=== PATIENT | male | born 1960 | race African-American/Black ===

== ENCOUNTER 2018-09-21 11:08 | Inpatient (IN) | payer MEDICAID, MEDICARE ==
[~2018-09-21] VITALS: Ht 180.3 cm; Wt 77.1 kg
[~2018-09-21 11:08] MED LIST: AMA1 PO; ATOR10TA PO; CLOP75TA16 PO; CYCL5TAB10 PO; FOLI-43 PO; PIOG15TA6 PO; ZOLP12.52 PO
[2018-09-21] MEDS ORDERED: MORPHINE SULFATE 2 MG/ML CPJ (NOT FOR IM USE) IV ONE (11:45)
[2018-09-21] MEDS ORDERED: SODIUM CHLORIDE 0.9% 1000ML BAG (SEPSIS BOLUS) IV ONE (11:45)
[2018-09-21 11:57] LABS: BASOPHILS % 0.9 % (0.0-2.0); EOSINOPHILS % 1.4 % (0.0-5.0); HEMATOCRIT. 37.7 % (42.0-52.0); HEMOGLOBIN. 12.1 g/dL (14.0-18.0); LYMPHOCYTES % 43.2 % (20.0-50.0); MEAN CORPUSCULAR VOLUME 87.4 fL (80.0-94.0); MONOCYTES % 10.3 % (2.0-8.0); NEUTROPHILS % 44.2 % (40.0-76.0); PLATELET 182 x1000/uL (130-400); RED BLOOD CELL COUNT 4.32 mill/uL (4.7-6.1); RED CELL DISTRIBUTION WIDTH 14.4 % (11.6-14.6)
[2018-09-21 12:03] LABS: CHLORIDE 111 mEq/L (98-107)
[2018-09-21 12:09] LABS: D-DIMER 8.04 mg/L FEU (<0.50); INR 1.2; PARTIAL THROMBOPLASTIN TIME 27.4 sec (23.4-31.0); PROTHROMBIN TIME 11.9 sec (9.6-11.0)
[2018-09-21] MEDS ORDERED: VANCOMYCIN 1 G PREMIX 200 ML IV SCH (12:15)
[2018-09-21] MEDS ORDERED: MORPHINE SULFATE 4 MG/ML CPJ (NOT FOR IM USE) IV ONE (12:15)
[2018-09-21] MEDS ORDERED: PIPERACILLIN/TAZ 3.375G PREMIX 50 ML IV ONE (12:15)
[2018-09-21 14:37] LABS: CLARITY URINE CLEAR (CLEAR); COLOR URINE YELLOW (YELLOW); KETONES URINE NEGATIVE (NEGATIVE); LEUKOCYTE ESTERASE URINE 3+ (NEGATIVE); NITRITE URINE NEGATIVE (NEGATIVE); OCCULT BLOOD URINE 1+ (NEGATIVE); PH URINE 5.5 (4.5-8.0); PROTEIN URINE NEGATIVE (NEGATIVE); SPECIFIC GRAVITY URINE 1.011 (1.005-1.030); UROBILINOGEN URINE 0.2 E.U./dL (0.2-1.0)
[2018-09-21] MEDS ORDERED: IOHEXOL-350 100 ML BOTTLE ONE (15:35)
[2018-09-21] MEDS ORDERED: IPRATROPIUM/ALBUTEROL 0.5-3(2.5)MG/3ML NEB HHN SCH (16:00)
[2018-09-21 16:30] VITALS: BP 122/89
[2018-09-21 16:58] VITALS: BP 122/89
[2018-09-21] MEDS ORDERED: BLOOD SUGAR DIAGNOSTIC STRIP TEST SCH (17:10)
[2018-09-21] MEDS ORDERED: IPRATROPIUM/ALBUTEROL 0.5-3(2.5)MG/3ML NEB INH PRN (17:15)
[2018-09-21] MEDS ORDERED: ACETAMINOPHEN 325MG TABLET PO PRN (17:15)
[2018-09-21] MEDS ORDERED: ACETAMINOPHEN 650MG SUPP PR PRN (17:15)
[2018-09-21] MEDS ORDERED: CLONIDINE 0.1MG TABLET PO PRN (17:15)
[2018-09-21] MEDS ORDERED: DOCUSATE SODIUM 100MG CAPSULE PO PRN (17:15)
[2018-09-21] MEDS ORDERED: HYDROCODONE/ACETAMINOPHEN 5/325MG TABLET PO PRN (17:15)
[2018-09-21] MEDS ORDERED: DEXTROSE 50% WATER 50ML SYRINGE IV PRN (17:15)
[2018-09-21] MEDS ORDERED: ONDANSETRON HCL 4MG/2ML INJ IV PRN (17:15)
[2018-09-21] MEDS ORDERED: GUAIFENESIN 200MG/10ML SUGAR FREE UDC PO PRN (17:15)
[2018-09-21] MEDS ORDERED: NA PHOS,M-B/NA PHOS,DI-BA ENEMA 118ML PR PRN (17:15)
[2018-09-21] MEDS ORDERED: DIPHENHYDRAMINE 50MG/ML VIAL IV PRN (17:15)
[2018-09-21] MEDS ORDERED: MAGNESIUM/ALUMINUM HYDROXIDE/SIMETHICONE 30ML UDC PO PRN (17:15)
[2018-09-21] MEDS ORDERED: LORAZEPAM 0.5MG TABLET PO PRN (17:15)
[2018-09-21] MEDS ORDERED: INSULIN LISPRO 100 UNITS/ML SUBCUT SCH (17:40)
[2018-09-21] MEDS ORDERED: LEVOFLOXACIN 500MG PREMIX 100 ML IV SCH (18:00)
[2018-09-21] MEDS ORDERED: IPRATROPIUM/ALBUTEROL 0.5-3(2.5)MG/3ML NEB INH SCH (18:00)
[2018-09-21 20:29] VITALS: BP 123/86
[2018-09-21 20:51] VITALS: BP 123/86
[2018-09-22 07:50] LABS: OPIATES URINE SCREEN PRESUMTIVE POSITIVE (NEGATIVE)
[2018-09-22 07:51] LABS: *AMPHETAMINES SCREEN URINE NEGATIVE (NEGATIVE); *BARBITURATES SCREEN URINE NEGATIVE (NEGATIVE); *BENZODIAZEPINES SCREEN URINE NEGATIVE (NEGATIVE); *COCAINE SCREEN URINE NEGATIVE (NEGATIVE); CANNABINOID URINE SCREEN NEGATIVE (NEGATIVE); PHENCYCLIDINE URINE SCREEN NEGATIVE (NEGATIVE)
[2018-09-22 07:52] LABS: METHADONE URINE SCREEN NEGATIVE (NEGATIVE)
== END 2018-09-21 21:25 | disposition short-term general hospital (02) | DRG 191 ==
LOC: ER 11:08 → EDBEDREQ 12:40 → 8WST 13:05 → EDBEDREQ 13:08 → ENRESERV 15:26
PROVIDERS: ADMIT Internal Medicine; ATTEND Internal Medicine
DX: J44.1 Chronic obstructive pulmonary disease with (acute) exacerbation (principal); M86.9 Osteomyelitis, unspecified; J90 Pleural effusion, not elsewhere classified; R07.89 Other chest pain; E11.9 Type 2 diabetes mellitus without complications; I10 Essential (primary) hypertension; R06.03 Acute respiratory distress; E78.5 Hyperlipidemia, unspecified; Z91.19 Patient's noncompliance with other medical treatment and regimen; E11.69 Type 2 diabetes mellitus with other specified complication; Z98.84 Bariatric surgery status; Z79.899 Other long term (current) drug therapy; Z86.718 Personal history of other venous thrombosis and embolism; Z91.013 Allergy to seafood; Z89.629 Acquired absence of unspecified hip joint
CPT/HCPCS: 36415; 71045; 71275; 80305; 82962; 83605; 84145; 84484; 85379; 93005; 99285; J1956; J2270; J2543; J3370; J7030; J7040; J7620; Q9967